=== PATIENT | female | born 1970 | race Caucasian/White ===

== ENCOUNTER 2023-07-20 07:20 | Day surgery (SDC) | payer OTHER ==
[~2023-07-20] VITALS: Ht 152.4 cm; Wt 95.3 kg
[2023-07-20 07:58] LABS: HCG,QUAL RESULT NEGATIVE (NEGATIVE)
[2023-07-20 08:27] VITALS: O2SAT 98
[2023-07-20] MEDS ORDERED: MIDAZOLAM HCL 5 MG/5 ML VIAL ONE ×2 (10:51→11:09)
[2023-07-20] MEDS ORDERED: MEPERIDINE 100 MG INJ. 100 MG/ML VIAL ONE (10:52)
[2023-07-20 15:22] VITALS: BP_SYST 118; PULSE 60; RESP 15
== END 2023-07-20 11:50 | disposition home or self-care (01) ==
LOC: SDS 07:20 → SMU 07:23 → SDS 11:50
PROVIDERS: ATTEND Internal Medicine
DX: Z12.11 Encounter for screening for malignant neoplasm of colon (principal); D12.4 Benign neoplasm of descending colon; K57.30 Diverticulosis of large intestine without perforation or abscess without bleeding; K64.8 Other hemorrhoids; E78.00 Pure hypercholesterolemia, unspecified; Z79.899 Other long term (current) drug therapy
CPT/HCPCS: 45385; 99152; 84703; 88305; G0378; J2250; J2175

== ENCOUNTER 2024-04-25 07:13 | Day surgery (SDC) | payer OTHER ==
[~2024-04-25] VITALS: Ht 152.4 cm; Wt 95.7 kg
[2024-04-25 07:34] LABS: HCG,QUAL RESULT NEGATIVE (NEGATIVE)
[2024-04-25] MEDS ORDERED: MEPERIDINE 100 MG INJ. 100 MG/ML VIAL ONE (08:04)
[2024-04-25] MEDS ORDERED: MIDAZOLAM HCL 5 MG/5 ML VIAL ONE (08:04)
[2024-04-25] MEDS ORDERED: BENZOCAINE 20% 0.5mL UD SPRAY MM ONE (08:23)
[2024-04-25 09:00] VITALS: O2SAT 98
[2024-04-25 15:09] VITALS: BP_SYST 126; PULSE 63; RESP 12
== END 2024-04-25 10:05 | disposition home or self-care (01) ==
LOC: SDS 07:13 → SMU 07:14 → SDS 10:05
PROVIDERS: ATTEND Internal Medicine
DX: R10.9 Unspecified abdominal pain (principal); K31.89 Other diseases of stomach and duodenum; K29.50 Unspecified chronic gastritis without bleeding; E78.00 Pure hypercholesterolemia, unspecified; E66.9 Obesity, unspecified; K44.9 Diaphragmatic hernia without obstruction or gangrene; Z68.41 Body mass index [BMI] 40.0-44.9, adult
CPT/HCPCS: 43239; 99152; 84703; 88305; 88312; 88313; G0378; J2250; J2175